=== PATIENT | female | born 1950 | race Caucasian/White ===

== ENCOUNTER 2021-03-21 11:26 | Observation (INO) ==
[2021-03-21] MEDS ORDERED: Lactated Ringers 1000 ml BAG 1,000 ML IV ONE (11:46)
[2021-03-21 12:40] LABS: ABS Basophils 0.1 10^3/ul (0-0.2); ABS Eosinophils 0.1 10^3/ul (0-0.6); ABS Lymphocytes 1.2 10^3/ul (1.0-4.8); ABS Monocytes 0.5 10^3/ul (0-0.8); ABS Neutrophils 5.8 10^3/ul (1.5-7.7); Hematocrit 39 % (35-47); Mean Corpuscular HGB Conc 33 g/dL (31-36); Mean Corpuscular Hemoglobin 30 pg (27-31); Mean Corpuscular Volume 89 fL (80-97); Mean Platelet Volume 8.5 fL (7.4-10.4); Platelet Count 225 10^3/uL (150-450); Red Blood Count 4.34 10^6 /uL (3.70-4.87); Red Cell Distribution Width 14 % (10-15); White Blood Count 7.7 10^3/uL (3.5-10.8)
[2021-03-21 12:55] LABS: ALT 15 U/L (7-52); Albumin 3.7 g/dL (3.2-5.2); Albumin/Globulin Ratio 1.4 (1-3); Alkaline Phosphatase 52 U/L (35-149); Blood Urea Nitrogen 19 mg/dL (6-24); CO2 Carbon Dioxide 28 mmol/L (22-32); Calcium 8.6 mg/dL (8.6-10.3); Chloride 102 mmol/L (101-111); Globulin 2.6 g/dL (2-4); Glucose 99 mg/dL (70-100); Sodium 134 mmol/L (135-145); Total Protein 6.3 g/dL (6.4-8.9)
[2021-03-21 13:36] LABS: TSH Ultra Thyroid Stim Horm 1.81 mcIU/mL (0.34-5.60)
[2021-03-21] MEDS ORDERED: Enoxaparin 40 MG/0.4 ML SYR SUBCUT SCH (14:00)
[2021-03-21 14:43] LABS: Anion Gap 4 mmol/L (2-11)
[2021-03-21 15:07] LABS: Rapid COVID-19 Molecular Undetected (Undetected)
[2021-03-22 06:22] LABS: Hematocrit 40 % (35-47); Hemoglobin 13.4 g/dL (12.0-16.0); Mean Corpuscular HGB Conc 33 g/dL (31-36); Mean Corpuscular Hemoglobin 30 pg (27-31); Mean Corpuscular Volume 89 fL (80-97); Mean Platelet Volume 8.4 fL (7.4-10.4); Platelet Count 231 10^3/uL (150-450); Red Blood Count 4.51 10^6 /uL (3.70-4.87); Red Cell Distribution Width 15 % (10-15); White Blood Count 4.6 10^3/uL (3.5-10.8)
[2021-03-22 06:38] LABS: Calcium 8.7 mg/dL (8.6-10.3); Potassium 4.2 mmol/L (3.5-5.0)
[2021-03-22 11:36] VITALS: BP 125/61
[2021-03-22 23:46] LABS: Anaplasma phagocytophilum Negative (Negative); B. miyamotoi PCR, B Negative (Negative); Babesia divergens/MO-1 Negative (Negative); Babesia ducani Negative (Negative); Ehrlichia chaffeensis Negative (Negative); Ehrlichia ewingii/canis Negative (Negative); Ehrlichia muris eauclairensis Negative (Negative)
== END 2021-03-22 12:55 | disposition home or self-care (01) ==
LOC: EDHOLD 11:26 → ED 11:26 → MEDTELE 15:54
PROVIDERS: ADMIT Hospitalist; ATTEND Hospitalist